=== PATIENT | female | born 1955 | race Two or more races ===

== ENCOUNTER → 2018-01-11 | Outpatient (CLI) | payer MEDICAID | LOC: FIMAGING 18:35 | PROVIDERS: ATTEND Podiatrist Primary Podiatric Medicine | DX: M20.11 Hallux valgus (acquired), right foot (principal); M19.071 Primary osteoarthritis, right ankle and foot; E11.9 Type 2 diabetes mellitus without complications ==

== ENCOUNTER 2018-04-27 05:13 | Day surgery (SDC) | payer MEDICAID ==
[2018-04-27] MEDS ORDERED: ceFAZolin 2 GM/DEXTROSE 100 ML IV ONE (05:42)
[2018-04-27] MEDS ORDERED: LR 1,000 ML IV ONE (05:43)
[2018-04-27 06:28] LABS: PLATELET COUNT 210 10^3/uL (150-400)
[2018-04-27] MEDS ORDERED: BACITRACIN 50,000 UNITS/10 ML SYR IRR ONE (06:54)
[2018-04-27] MEDS ORDERED: BUPIVACAINE 0.25% 30 ML SDV ONE (06:54)
[2018-04-27] MEDS ORDERED: EPINEPHrine 1 MG/ML INJ ONE (06:54)
[2018-04-27] MEDS ORDERED: MIDAZOLAM 2 MG/2 ML VIAL IVP ONE (07:03)
--- NOTE | 2018-04-27 07:04 | PDANEPAE ---
ANE History of Present Illness h/o right toe osteomyelitis ANE Past Medical History - Cardiovascular History Hx Hypertension: Yes Hx Arrhythmias: No Hx Chest Pain: No Hx Coronary Artery / Peripheral Vascular Disease: No Hx CHF / Valvular Disease: No Hx Palpitations: No - Pulmonary History Hx COPD: No Hx Asthma/Reactive Airway Disease: No Hx Recent Upper Respiratory Infection: No Hx Oxygen in Use at Home: No Hx Sleep Apnea: No Sleep Apnea Screening Result - Last Documented: Positive Pulmonary History Comment: DIONNA triggers - Neurologic History Hx Cerebrovascular Accident: Yes Hx Seizures: Yes Hx Dementia: No Neurologic History Comment: PRIOR TO BRAIN SURGERY 2010 RELATED TO INFECTION. 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 MOVED HERE FROM IN IN JUNE. BLADDER PROLAPSE - Liver History Hx Hepatic Disorders: No - Neurological & Psychiatric Hx Hx Neurological and Psychiatric Disorders: No Neurological / Psychiatric History Comment: DEPRESSION undiagnosed - Cancer History Hx Cancer: No - Congenital Disorder History Hx Congenital Disorders: No - GI History GERD: mild Hx Gastrointestinal Disorders: Yes Gastrointestinal History Comment: GERD - Other Health History Other Health History: ANEMIA. 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 WORKING WITH [employer] PAST 3 MONTHS. MISSING TEETH. retinopathy,laser surgery. DRY MOUTH/ DENTAL INFECTION WILL ADDRESS AFTER FOOT PROCEDURE - Chronic Pain History Chronic Pain: Yes (right knee) - Surgical History Prior Surgeries: RT FOOT PLANTAR MRSA INFECTION 2016 IN [place]. RT ANKLE BONE MRSA INFECTION 2010 [place]. POST DENTAL INFECTION BRAIN SURG FOR ENCAPULATED INFECTION METAL PLATE PLACED. [place] 02/2011. T&A ANE Review of Systems Review of Systems: - Exercise capacity Exercise capacity: limited by disability METS (RN): 3 METS ANE Patient History - Allergies Allergies/Adverse Reactions: adhesive Allergy (Verified 04/25/18 17:44) BLISTERS codeine Allergy (Verified 04/25/18 17:44) AFFECTS HER MENTALLY ibuprofen Allergy (Verified 04/25/18 17:44) Rash oxycodone Allergy (Verified 04/25/18 17:44) NAUSEA/LETHARGIC - Home Medications Home medications: home medication list seen and reviewed Home Medications: Herbals/Supplements -Info Only 01/20/18 [Last Taken 04/20/18] Metformin HCl 01/20/18 [Last Taken 04/24/18] Metoprolol Tartrate 01/20/18 [Last Taken 04/26/18] Tradjenta 01/20/18 [Last Taken 04/24/18] Tylenol 01/20/18 [Last Taken 04/24/18] - NPO status NPO Status: no food or drink >8 hours NPO Since - Liquids (Date): 04/26/18 NPO Since - Liquids (Time): 23:30 NPO Since - Solids (Date): 04/26/18 NPO Since - Solids (Time): 19:30 - Anes Hx Anes Hx: no prior problems - Smoking Hx Smoking Status: Never smoked - Family Anes Hx Family Anes Hx: none Family Hx Anesthesia Complications: none ANE Labs/Vital Signs - Labs Result Diagrams: 04/27/18 06:16 04/27/18 06:16 - Vital Signs Vital Signs: reviewed preoperatively; see RN documention for details Blood Pressure: 177/96 Heart Rate: 74 Respiratory Rate: 16 O2 Sat (%): 93 Height: 170.18 cm Weight: 122.47 kg ANE Physical Exam - Airway Neck exam: FROM Mallampati Score: Class 2 - Pulmonary Pulmonary: no respiratory distress - Cardiovascular Cardiovascular: regular rate and rhythym - ASA Status ASA Status: III ANE Anesthesia Plan Anesthesia Plan: general endotracheal anesthesia
--- NOTE | 2018-04-27 07:09 | PDHPUP ---
History & Physical Update H&P update statement: This history and physical update is based on an assessment of the patient which was completed after admission or registration (within 24 hours), but prior to the surgery/procedure. H&P update: H&P reviewed & patient examined, no change in patient's condition since H&P completed
[2018-04-27] MEDS ORDERED: MIDAZOLAM 2 MG/2 ML VIAL ONE (07:10)
[2018-04-27] MEDS ORDERED: PROPOFOL 200 MG/20 ML VIAL ONE (07:12)
[2018-04-27] MEDS ORDERED: LIDOCAINE 2% 5 ML SDV ONE (07:16)
[2018-04-27] MEDS ORDERED: DEXAMETHASONE 4 MG/ML VIAL ONE (07:16)
[2018-04-27] MEDS ORDERED: fentaNYL 100 MCG/2 ML INJ ONE (07:16)
[2018-04-27] MEDS ORDERED: ONDANSETRON 4 MG/2 ML VIAL ONE (07:16)
[2018-04-27] MEDS ORDERED: ROCURONIUM 50 MG/5 ML VIAL ONE (07:22)
[2018-04-27] MEDS ORDERED: ePHEDrine SULFATE 25 MG/5 ML SYR ONE (08:09)
[2018-04-27] MEDS ORDERED: PHENYLEPHRINE HCL 100 MCG/ML SYR ONE (08:09)
[2018-04-27] MEDS ORDERED: NEOSTIGMINE METHYLSULFATE 5 MG/5 ML SYR ONE (08:32)
[2018-04-27] MEDS ORDERED: GLYCOPYRROLATE 0.2 MG/1 ML VIAL ONE (08:32)
[2018-04-27] MEDS ORDERED: ALBUTEROL 3 ML DEYVIAL IH PRN (08:43)
[2018-04-27] MEDS ORDERED: LABETALOL HCL 5 MG/ML 20 ML MDV IVP PRN (08:43)
[2018-04-27] MEDS ORDERED: PROMETHAZINE HCL 25 MG/ML INJ IVP PRN (08:43)
[2018-04-27] MEDS ORDERED: NALOXONE HCL 0.4 MG/ML INJ IVP PRN (08:43)
[2018-04-27] MEDS ORDERED: MEPERIDINE 25 MG/0.5 ML AMP IVP PRN (08:43)
[2018-04-27] MEDS ORDERED: METOCLOPRAMIDE 10 MG/2 ML VIAL IVP PRN (08:43)
[2018-04-27] MEDS ORDERED: LR 500 ML IV PRN (08:43)
[2018-04-27] MEDS ORDERED: PHENYLEPHRINE HCL 100 MCG/ML SYR IVP PRN (08:43)
[2018-04-27] MEDS ORDERED: HYDROCODONE/APAP 5/325 TAB PO PRN (08:43)
[2018-04-27] MEDS ORDERED: ONDANSETRON 4 MG/2 ML VIAL IVP PRN (08:43)
[2018-04-27] MEDS ORDERED: HYDROmorphONE/DILAUDID 2 MG/ML INJ IVP PRN (08:43)
[2018-04-27] MEDS ORDERED: DIAZEPAM 5 MG/ML 1 ML SYR IVP PRN (08:43)
[2018-04-27] MEDS ORDERED: fentaNYL 100 MCG/2 ML INJ IVP PRN (08:43)
--- NOTE | 2018-04-27 09:19 | POSTOPPROG ---
Post Op Note Date of Operation: 04/27/18 Surgeon: Juanjose Gonzales Stem Assembler: none Anesthesiologist: Khanh Anesthesia: IV Sedation Pre-op Diagnosis: hallux rigidus with ulcer right hallux Post-op Diagnosis: same Indication: pain and ulcer Procedure: henrik arthroplasty right 1st mtpj with distal phalanx amputation Findings: none Inf/Abcess present in the surg proc area at time of surgery?: No Depth: Deep Incisional (Fascial) EBL: Minimal Total fluids administered: 20cc 9/1 .25% marcaine plain and with epi Complications: none Drains: Other (none)
[2018-04-27 11:20] VITALS: BP 123/74
--- NOTE | 2018-04-27 11:43 | GOP ---
[f rep st] OPERATIVE REPORT DATE OF OPERATION: 04/27/2018 SURGEON: Juanjose Gonzales DPM ALTERATION HAND: None. ANESTHESIA: Local with MAC. ANESTHESIOLOGIST: Michael Snider MD. PREOPERATIVE DIAGNOSIS: 1. Hallux rigidus, right 1st metatarsophalangeal joint. 2. Ulceration distal medial plantar right hallux. 3. Diabetes. 4. Peripheral neuropathy. POSTOPERATIVE DIAGNOSIS: 1. Hallux rigidus, right 1st metatarsophalangeal joint. 2. Ulceration distal medial plantar right hallux. 3. Diabetes. 4. Peripheral neuropathy. PROCEDURE PERFORMED: 1. Right 1st metatarsophalangeal joint implant arthroplasty. 2. Disarticulation distal phalanx right hallux. 3. Rotational flap transfer right hallux. FINDINGS: ESTIMATED BLOOD LOSS: Minimal. DESCRIPTION OF PROCEDURE: Patient presented to [facility], was cleared for the intende d procedure. The patient was taken to the operating room and placed on the table in supine position. IV sedation was started per the anesthesia department. Foot was anesthetized in an infiltrative ne rve block fashion. Foot was prepped, scrubbed and draped in usual sterile fashion. Following exsang uination by elevation Esmarch bandage the pneumatic ankle tourniquet was inflated to 250 mmHg. At th is time, attention was directed to the distal end of the right hallux where the obvious ulceration on the plantar medial surface was noted. It was decided that given the angulation of the hallux that a mputation would be performed at this time. A transverse incision was made over the distal phalanx ju st proximal to the nail bed onto both sides of the hallux. At this point the incision was on the med ial side was carried down to the ulceration which was incised making sure to leave healthy skin mega ns around the area. It was then carried distally toward the tip of the toe and back then lateral to the previous incision. All these incisions were deepened utilizing sharp and blunt dissection, flavio g sure that all neurovascular structures were identified and retracted. At this time all superficial bleeders were cauterized. The incision was carried down deep to the distal phalanx. At this time, dissection was carried proximal to the level of the hallux interphalangeal joint. A capsulotomy was performed and the distal phalanx was disarticulated and removed at this time. Upon completion of thi s, there was noted to be enough tissue to move from plantar to dorsal to close the majority of the in cision with the exception of the circular ulceration on the plantar medial surface. At this time a h siddharth phillips incision was made in the distal flap so that rotation could be performed to close the ulcer. Upon completion of this, the area is flushed with copious amounts of sterile saline with antibiotic rinse. The extensor and flexor tendons were sutured together over the distal end of the proximal ph alanx with 3-0 Vicryl followed by subcutaneous closure along the entire incision with 5-0 Vicryl and skin closure with 4-0 nylon. The proximal portion of the distal phalanx was then marked with blue in k and sent in for any signs of pathological evidence of osteomyelitis, though no obvious signs were s een at this time. Upon completion of this, attention was redirected to the dorsal aspect of the foot where a linear incision was made over the metatarsophalangeal joint medial to the extensor hallucis longus tendon. The incision was carried deep utilizing sharp and blunt dissection, making sure that all neurovascular structures were identified and retracted. At this time all superficial bleeders we re cauterized. The incision was carried down to the level of the joint capsule. At this time, a jane ear capsulotomy was performed. Capsular tissues were dissected free medially and laterally to allow for adequate exposure to the head of the metatarsal and base of the proximal phalanx. At this time, the cartilage on the proximal phalanx side was noted to be fairly intact with a substantial plantar e xostosis. This was removed by rongeur at this time. The head of the metatarsal had some grade 3 and grade 4 chondromalacia changes in the central aspect of the metatarsal head and it was decided that implant arthroplasty would be performed. Before this was performed the sesamoids were freed up utili yanelis Saucedalamry elevator. Upon completion of this, the guidewire was placed into the metatarsal from d istal to proximal utilizing C-arm fluoroscopy to confirm necessary alignment. Upon confirmation of t his, the drill was placed over the guidewire and the area was drilled appropriately. The area was ag ain flushed with copious amounts of sterile saline. At this time, the area was tapped appropriately and then the screw was placed into the site with 1 mm of shortening being performed. Upon completion of this, the reamer was placed over the site and the area was reamed appropriately. The temporary t rial Sizer which was a 2.5 x 4.5 implant was placed into the area. The redundant exostosis around th e area was removed with a sagittal saw and high-speed bur. The area was again flushed with copious a palmer of sterile saline. Upon completion of this, the temporary Sizer was removed and the permanent implant was impacted appropriately into the screw. Solid fixation was appreciable at this time. Im proved range of motion was then noted at the metatarsophalangeal joint, though still somewhat limited from previous incision and drainage surgeries on the bottom of the foot which have resulted in scarr ing. The area was again flushed with copious amounts of sterile saline antibiotic rinse before capsu le was closed with 3-0 Vicryl followed by subcutaneous closure with 5-0 Vicryl and skin closure with 5-0 nylon. The area was dressed with Betadine-soaked Adaptics, 4x4s, Kerlix, and Coban. The patient was taken to recovery room, vital signs stable, vascular supply intact to the remaining digits after the pneumatic ankle tourniquet had been released for a total tourniquet time of 84 minutes. PATHOLOGY: Bone specimen sent for pathological evaluation. HEMOSTASIS: PAT at 250 mmHg by 84 minutes. MATERIALS: Arthro surface 2.5 x 4.5 implant. INJECTABLES: 20 cc 9:1 ratio 0.25% Marcaine plain, 0.25% Marcaine with epi, preoperatively. COMPLICATIONS: None. /[id number]/MODL
--- NOTE | 2018-04-27 14:42 | POSTANESTH ---
Post Anesthetic Evaluation Cardiovascular Status: Normal, Stable Respiratory Status: Normal, Stable Level of Consciousness/Mental Status: Can Participate in Eval Pain Control: Adequate, Prn Tx Ordered Nausea/Vomiting Control: Adequate, Prn Tx Ordered Complications Possibly Related to Anesthesia: None Noted
== END 2018-04-27 10:55 | disposition home or self-care (01) ==
LOC: FSGY 05:13
PROVIDERS: ATTEND Podiatrist Primary Podiatric Medicine
DX: M86.071 Acute hematogenous osteomyelitis, right ankle and foot (principal); M20.21 Hallux rigidus, right foot; L97.512 Non-pressure chronic ulcer of other part of right foot with fat layer exposed; E11.621 Type 2 diabetes mellitus with foot ulcer; E11.40 Type 2 diabetes mellitus with diabetic neuropathy, unspecified; Z87.891 Personal history of nicotine dependence
CPT/HCPCS: J0171; J0690; J1100; J2250; J2370; J2405; J2704; J2710; J3010